=== PATIENT | male | born 1990 | race Caucasian/White ===

== ENCOUNTER 2022-05-22 18:25 | Emergency (ER) | payer SELFPAY ==
[2022-05-22 18:31] VITALS: BP 138/84; PULSE 63; RESP 20; TEMP 36.6; O2SAT 98
--- NOTE | 2022-05-22 19:20 | ED.WOUNDLAC ---
HPI - Wound/Laceration General Chief Complaint: Wound/Laceration Stated Complaint: LAC TO L THUMB Time Seen by Provider: 05/22/22 18:48 History of Present Illness HPI narrative: Patient is a 31-year-old [id number] male here for evaluation of a laceration sustained to his right thumb about 30 minutes prior to arrival. Patient states that he was cutting vegetables when he accidentally sliced the tip of his right thumb on the knife. He denies any difficulty moving the thumb. No numbness or tingling. His tetanus is up-to-date as of 8 months ago. He has no bony pain. Related Data Allergies Allergy/AdvReac Type Severity Reaction Status Date / Time No Known Allergies Allergy Mild Verified 02/10/10 10:59 Review of Systems Review of Systems: Gen: Denies fevers or chills Eyes: Denies eye pain or visual change ENT: Denies congestion Respiratory: Denies shortness of breath or cough CV: Denies chest pain or palpitations GI: Denies abdominal pain nausea, emesis or diarrhea denies burning, urgency, frequency or hematuria Musculoskeletal: Denies back pain or muscle pain Neuro: Denies numbness, tingling, weakness or focal weakness Skin: Reports laceration Except as documented, all other systems reviewed and negative Exam Narrative: Gen: Alert, oriented, no acute distress Eyes: EOMI, no icterus Pulm: Respirations even and unlabored, symmetric thorax expansion, no audible stridor or visible cyanosis CV: Regular rate per telemetry GI: No distension, no voluntary/involuntary guarding Neuro: AOx4, moves all extremities without apparent difficulty or weakness, follows commands MSK: Sensation intact throughout thumb. FROM in thumb. Skin: Patient has a 2 cm C-shaped laceration to the palmar aspect of his distal right thumb just adjacent to the nailbed with active bleeding; no tendon involvement or FB on visualization. Does not involve the nailbed. Psych: Normal mood/affect, insight/judgement good, adequate fund of knowledge, recent/remote memory intact Course Vital Signs Vital signs: Vital Signs Temperature 97.9 F 05/22/22 18:31 Pulse Rate 63 05/22/22 18:31 Respiratory Rate 20 05/22/22 18:31 Blood Pressure 138/84 05/22/22 18:31 Pulse Oximetry 98 05/22/22 18:31 Oxygen Delivery Room Air 05/22/22 18:31 Temperature 97.9 F 05/22/22 18:31 Pulse Rate 63 05/22/22 18:31 Respiratory Rate 20 05/22/22 18:31 Blood Pressure 138/84 05/22/22 18:31 Pulse Oximetry 98 05/22/22 18:31 Oxygen Delivery Room Air 05/22/22 18:31 Procedures Laceration Laceration 1: Date: 05/22/22 Time: 19:20 Site: other (right thumb) Size (cm): 2 Description: linear Depth: simple, single layer Local Anesthetic: lidocaine 1% Amount of anesthesia used (mL): 3 Pre-repair: wound explored, irrigated and irrigated extensively ====== Skin Level ====== Skin layer closed with: other (ethilon) Size (cm): 5-0 Number of sutures: 5 Technique: simple, interrupted ====== Subcutaneous Layer ====== ====== Muscle Layer ====== ====== Tendon Layer ====== MDM - Wound/Laceration MDM Narrative Medical decision making narrative: 31 year old male here for evaluation of a laceration to his right thumb sustained 30 minutes [employer]. No nailbed involvement. Mechanism does not raise concern for retained FB/fracture thus an XR was not obtained. His tetanus is up-to-date. Wound was irrigated extensively with tap water and closed with simple interrupted sutures. He was educated on wound care and told to have stitches removed in about 7 days. He was given reasons to return to the ED and he voiced understanding. Discharge Plan Discharge Clinical Impression: Laceration Patient Disposition: Home, Self-Care Condition: Stable Instructions: Antibiotic Form, Care For Your Stitches (ED), Laceration (ED) Additional Instructions: You had s
== END 2022-05-22 19:44 | disposition home or self-care (01) ==
LOC: ANHED 19:32
PROVIDERS: Emergency Provider General Practice
DX: S61.011A Laceration without foreign body of right thumb without damage to nail, initial encounter (principal); W26.0XXA Contact with knife, initial encounter; Y93.G1 Activity, food preparation and clean up
CPT/HCPCS: 12001; 99282